=== PATIENT | male | born 1960 | race Caucasian/White ===

== ENCOUNTER 2019-02-18 17:58 | Emergency (ER) | payer MEDICAID, SELFPAY ==
[2019-02-18 18:00] VITALS: BP 159/74; PULSE 92; RESP 16; TEMP 36.8; O2SAT 97; BMI 29.2
[2019-02-18] MEDS: Morphine 4 MG/ML Syringe IV (20:44)
[2019-02-18] MEDS: Ketorolac 15 MG/ML Vial IV (20:45)
[2019-02-18] MEDS: Ondansetron 4 MG/2 ML Vial IV (20:45)
[2019-02-18 20:47] VITALS: BP 147/91; PULSE 74; PULSE 76; RESP 18; TEMP 36.7; O2SAT 96
[2019-02-18 20:48] LABS: Bacteria 0 SEEN /hpf (None Seen); Mucous, Urine 0 SEEN /hpf (<or=2+); Squamous Epithelial Cells - UA 0 SEEN /hpf (0-5)
[2019-02-18 20:50] LABS: Color, Urine Yellow (Yellow); Glucose, Dipstick 250 mg/dl (Normal); Ketone-Dipstick 5 mg/dl (Negative); Leukocyte Esterase-Dipstick 500 /ul (Negative); Nitrite-Dipstick Negative (Negative); Occult Blood-Urine 150 /ul (Negative); Protein-Dipstick 30 mg/dl (Negative); Specific Gravity, Urine 1.025 (1.002-1.030); Urine Bilirubin Dipstick Negative (Negative); Urine Clarity Sl. Cloudy (Clear); Urine Urobilinogen 1 mg/dl (Normal)
[2019-02-18 20:58] LABS: Red Blood Cells-Urine 5-10 SEEN /hpf (0-5); White Blood Cells 25-50 SEEN /hpf (0-5)
--- NOTE | 2019-02-18 21:10 | ED.VIS.GEN ---
History of Present Illness Chief Complaint: Male Pain/Injury Detail of Chief Complaint: Left testicular pain and swelling Informant: Patient Onset: Days - Several days Context: Sudden Onset Timing: Continuous Quality: Pain Location: Left testicle Current Severity: Mild Maximum Severity: Severe Worsened by: Walking and movement Relieved by: Nothing Associated Symptoms: No associated symptoms Narrative: Is a 58-year-old male in a monogamous abrasive who presents with atraumatic left testicular pain and swelling. He denies dysuria, frequency, urgency or hematuria. He denies penile discharge. He denies penile lesions. He denies prior history of STD. He denies fever, chills or night sweats. He denies history of prior symptoms. He denies inguinal mass or bulge. Prior similar symptoms: No Recent Illness/Hospitalization: No - Past Medical History (1) No significant past medical history Status: Acute Past Medical History - Allergies and Home Meds Allergies/Adverse Reactions: Allergies Penicillins [PCN] Allergy (Verified 02/18/19 18:00) Other Primary Care Physician: NOT,DEFINED [NON-STAFF] - Prior records reviewed: No Past Medical History: None Surgical History: - - Rotator cuff surgery left Lives: Spouse/ Significant Other Smoking Status: Current some day smoker Alcohol: Rare Drugs: None Review of Systems General: Denies: Chills, Fever, Malaise, Sweats Gastrointestinal: Denies: Abdominal pain, Nausea, Vomiting, Diarrhea, Melena, Hematochezia Genitourinary: Denies: Dysuria, Hematuria, Frequency Musculoskeletal: Denies: Myalgias, Arthralgias, Neck pain, Back pain, Swelling, Extremity Pain, -, - Skin: Denies: Rash, Wounds Physical Exam Vital Signs/Narrative: Vital Signs Temp Pulse Resp BP Pulse Ox 02/18/19 20:47 98.1 F 76 18 147/91 H 96 02/18/19 18:00 98.3 F 92 16 159/74 H 97 Inital Vital Signs reviewed: Yes General: Well nourished, Well developed, No Acute Distress Head: Normocephalic, Atraumatic Eyes: Perrl, EOMI, Pale conjunctiva, Scleral icterus Neck: Supple, Nontender, No JVD Cardiovascular: Regular rate, Regular rhythm, No murmurs, Normal S1, Normal S2 Respiratory: No distress, CTA bilaterally, Chest nontender Abdomen: Soft, Nontender, Nondistended, Normal bowel sounds : - - Testes are descended bilaterally. The left testicle is swollen tender with significant tenderness in the epididymis. There is no evidence of inguinal lymphadenopathy or inguinal hernia. He is circumcised. No penile lesions or discharge noted. Extremities: Nontender, No edema Skin: Normal color, No rash, No Trauma. Negative for: Cyanosis, Diaphoresis, Jaundice Neurological: Alert, Oriented x3, Cranial nerves II-XII grossly intact, Normal Strength, Normal Sensation Psychological: Normal affect, Normal Mood Diagnostic/Tx/Re-eval Laboratory Results 02/18/19 19:40 Urine Color Yellow Urine Clarity Sl. Cloudy Urine pH 5.0 Ur Specific [place] 1.025 Urine Protein 30 H Urine Glucose (UA) 250 H Urine Ketones 5 H Urine Occult Blood 150 H Urine Nitrite Negative Urine Bilirubin Negative Urine Urobilinogen 1 H Ur Leukocyte Esterase 500 H Urine RBC 5-10 SEEN Urine WBC 25-50 SEEN Ur Squamous Epith Cells 0 SEEN Urine Bacteria 0 SEEN Urine Mucus 0 SEEN UA is remarkable pyuria. There is no bacteria. Will treat with doxycycline for urologic as well as possible STD. - Medical Decision Making He was established he was medicated with IV morphine and Toradol. Urine for GC and chlamydia was ordered. UA was ordered per nursing staff. Patient has findings consistent with orchitis/epididymitis. Will treat with antibiotics. With inflammation and tenderness of the testicle epididymis will treat with doxycycline. Urine reveals pyuria without bacteria. Will refer to urology. Patient was discharged with prescription for antibiotic as well as opiate analgesia. ED Disposition - Plan for ED Patient: Disposition: Home or Assisted Living Diagnosis: Orchitis and epididymitis Instructions: Orchitis, Epididymitis Prescriptions: Doxycycline 100 mg PO BID #20 cap Prescription Printed Oxycodone HCl/Acetaminophen [Percocet 5/325] 1 tab PO Q6H PRN PRN 3 Days #12 tab PRN Reason: Pain Prescription Printed Referrals: NOT,DEFINED [NON-STAFF] - Robert Tate MD [STAFF PHYSICIAN] - 5-7 Days
[2019-02-18 23:45] VITALS: BP 137/81; PULSE 86; RESP 18; O2SAT 98
[2019-02-19 00:26] LABS: Chlamydia Trachomatis by PCR Negative (Negative); Neisserai gonorrhoeae by PCR Negative (Negative); Probe Check PASS; Sample Adequacy Control PASS; Specimen Processing Control PASS
== END 2019-02-18 23:52 | disposition home or self-care (01) ==
PROVIDERS: Emergency Provider Emergency Medicine
DX: N45.3 Epididymo-orchitis (principal); F17.200 Nicotine dependence, unspecified, uncomplicated
CPT/HCPCS: 81001; 87491; 87591; 96374; 96375; 99283; A4216; J2405

== ENCOUNTER 2019-03-07 13:09 | Outpatient (RCR) | payer MEDICAID, SELFPAY ==
--- NOTE | 2019-03-07 14:38 | HP.PTEVAL_ITS ---
Patient's Visit Information PAL GALLEGOS Jr. is a 58 year old M referred to Physical Therapy by Jd Jacinto MD with a diagnosis of L reverse TSA 02/21/19. Date of Evaluation: 03/07/19 Physical Therapist: Jorge Alberto Cabrales PT, ATC - Visit Plan Frequency: 2x /Week Duration: 6 Weeks Plan: Follow protocal per Dr dunham CP for pain - Subjective Findings: DOS: 02/21/19. Pt had a reverse total shoulder replacement at that time. Pt reports he is still having sleep difficulty at this time secondary to pain. Occasional tingling and numbness down to L elbow since DOS. Pt is R hand dominant. Pt reports he tore his rotator cuff lifting weights. Pt reports he was supposed to wear a sling for 2 weeks, but notes he rarely wore it. Pt reports he was told he didnt have to wear it after the 2 week. aman. Pt reports he has been performing a HEP for L shoulder ROM for the past 2 weeks. Pt is currently on disability at this time for mental health reasons. 3/10 pain at rest, 8/10 pain while trying to sleep. - Pain L shoulder pain Pain Intensity (Out of 10): 3 Pain Intensity Range: 8 - Objective Neuro: B UE sensation is WNL to light touch. B bicepital reflex= 2/3. ROM: R shoulder flex= 160, abd= 165, ER= 30, IR WNL. L shoulder flex= 140, abd= 120, ER=0, IR= moderately liimited. MMT: R shoulder 5/5 throughout. L shoulder is 3/5 in available ROM. Observation: Incisions are healed. No signs of infection. - Goals Goal 1:: Decrease L shoulder pain x 50% to aid with sleep Goal Time Frame: 6-8 Weeks Goal 2:: Increase L shoulder strength x 1 grade to aid with IADL's Goal Time Frame: 6-8 Weeks Goal 3:: Increase L shoulder flex and abd ROM x 1 grade to aid with overhead lifting activity Goal Time Frame: 6-8 Weeks Goal 4:: I with HEP Goal Time Frame: 6-8 Weeks - Rehabilitation Potential Physical Therapy Diagnosis: L shoulder pain, weakness, and limited ROM secondary to L rot cuff repair Rehabilitation Potential: Good - Anticipated Interventions Patient/Client Instruction: Educate patient on: Condition, Plan of Care For the Purpose of:: To improve self management Therapeutic Exercise to Include: Strength training, Endurance training, Postural training, Passive ROM, Active ROM, Scapular Strength/Stabilization For the Purpose of:: To decrease pain, To increase ROM, To improve muscle performance and motor function Cryotherapy (ice pack, ice massage): Yes For the Purpose of:: To decrease pain Thank you for the opportunity to evaluate your patient. For Medicare and Medicare HMO plans, please review the plan of care and approve it. It will need to be FAXED BACK to us at [phone] for Medicare purposes. For Medicare only, by signing this I certify the plan of care. Please let me know if there are questions or concerns regarding this plan of care. Physician Signature: Date:
--- NOTE | 2019-03-21 07:33 | HP.PT.NRP ---
HP - Discharge Summary (1) - Patient Information PAL GALLEGOS Jr. was seen in my office for initial evaluation on 03/07/19. The following Plan of Care was established for this patient: Initial Frequency: 2x /Week Initial Duration: 6 Weeks - Anticipated Interventions Patient/Client Instruction: Educate patient on: Condition, Plan of Care For the Purpose of:: To improve self management Therapeutic Exercise to Include: Strength training, Endurance training, Postural training, Passive ROM, Active ROM, Scapular Strength/Stabilization For the Purpose of:: To decrease pain, To increase ROM, To improve muscle performance and motor function Cryotherapy (ice pack, ice massage): Yes For the Purpose of:: To decrease pain This patient was last seen in our office . Pertinent comments regarding their Physical therapy will appear below: Pt phoned the clinic on 03/17/19 to report he is moving to [place] and will be performing PT there. Discontinue. At this point I will be discontinuing this patient from physical therapy. I would be happy to see this patient again in the future if found appropriate by the physician. Thank you! Jorge Alberto Cabrales, PT, ATC
== END 2019-03-07 19:00 | disposition home or self-care (01) ==
LOC: PT 13:09
DX: M75.122 Complete rotator cuff tear or rupture of left shoulder, not specified as traumatic (principal)
CPT/HCPCS: 97161